=== PATIENT | female | born 1990 | race Caucasian/White ===

== ENCOUNTER 2021-01-17 02:37 | Emergency (ER) | payer OTHER ==
[2021-01-17 03:22] LABS: BILIRUBIN NEGATIVE (NEGATIVE); BLOOD 2+ Ery/uL (NEGATIVE); CLARITY HAZY (CLEAR); COLOR YELLOW (YELLOW); GLUCOSE (U) NORMAL (NORMAL); LEUKOCYTES NEGATIVE Leu/uL (NEGATIVE); NITRITE NEGATIVE (NEGATIVE); PROTEIN NEGATIVE (NEGATIVE); SPECIFIC GRAVITY 1.015 (1.001-1.030); UROBILINOGEN 0.2 mg/dL (0.2-1.0)
[2021-01-17 03:22] LABS: BASOPHIL 0.5 % (0-2); EOSINOPHIL 1.4 % (0-5); HCT 44.3 % (37.0-47.0); HGB 15.7 g/dl (12.5-16.0); LYMPHOCYTE 18.6 % (15-48); MCH 32.6 pg (25.0-31.0); MCHC 35.4 g/dL (32.0-36.0); MCV 92.1 fL (78.0-100.0); MONOCYTE 5.1 % (0-12); MPV 10.3 fL (6.0-9.5); NEUTROPHIL 73.9 % (41-80); NRBC 0; PLT 391 K/uL (150-400); RBC 4.81 M/uL (4.20-5.40); RDW 12.5 % (11.5-14.0); WBC 18.3 K/uL (4.0-10.5)
[2021-01-17 03:29] LABS: SQUAMOUS EPITHELIAL CELLS RARE
[2021-01-17 03:30] LABS: ALBUMIN 3.6 g/dL (3.4-5.0); BILIRUBIN - TOTAL 0.3 mg/dL (0.2-1.0); BUN/CREAT RATIO (CALC) 23.6 RATIO; CREATININE 0.72 mg/dL (0.51-0.95); GLOBULIN (CALCULATION) 4.5 g/dL; POTASSIUM 3.3 mmol/L (3.5-5.1); TOTAL PROTEIN 8.1 g/dL (6.4-8.2)
[2021-01-17 03:37] LABS: LACTIC ACID 1.1 mmol/L (0.4-1.9)
[2021-01-17] MEDS ORDERED: ZESTRIL10 MG PO (05:50)
[2021-01-17] MEDS ORDERED: CARAFATE1 GM PO (05:50)
[2021-01-17] MEDS ORDERED: TYLENOL #31 EACH PO (05:50)
[2021-01-17] MEDS ORDERED: PROTONIX 40MG T40 MG PO (05:50)
[2021-01-17] MEDS ORDERED: ONDANSETRON ODT4 MG SL (05:50)
== END 2021-01-17 06:10 | disposition home or self-care (01) ==
LOC: FER 02:37
PROVIDERS: Emergency Medicine Emergency Medical Services
DX: R10.13 Epigastric pain (principal); I10 Essential (primary) hypertension; N83.201 Unspecified ovarian cyst, right side; Z87.59 Personal history of other complications of pregnancy, childbirth and the puerperium; Z79.899 Other long term (current) drug therapy; Z98.890 Other specified postprocedural states
CPT/HCPCS: 36415; 80053; 81001; 83605; 83690; 84145; 85025; J1885; J2405; J7030; Q9967